=== PATIENT | female | born 1945 | race Caucasian/White ===

== ENCOUNTER 2020-04-11 07:29 | Outpatient (REF) | payer MEDICARE, SELFPAY ==
--- NOTE | 2020-04-11 07:35 | MM_ITS ---
EXAMINATION: MM SCREENING DIGITAL BREAST TOMOSYNTHESIS, BILATERAL CLINICAL INFORMATION: Screening. Asymptomatic. The lifetime risk of breast cancer based on the Tyrer-Cuzick Model is under 2%. COMPARISON: Mammography: 04/04/2019, 02/19/2018, 12/30/2016 TECHNIQUE: Digital breast tomosynthesis is performed in both the craniocaudal and mediolateral oblique views along with computer-aided detection (CAD). Synthesized 2D images are generated from the tomosynthesis. Additional exaggerated left CC view is provided. FINDINGS: The breasts are heterogeneously dense, which may obscure small masses (ACR BI-RADS breast composition Category c). There is no significant mass or architectural abnormality. Parenchymal pattern is similar to prior studies. No developing density. There are bilateral vascular and some round and coarse calcifications. Ductal secretory calcifications again noted anterior 12:00 right breast. No significant changes from prior exams. MM/MM tomosynthesis screening BI IMPRESSION: No significant changes from prior studies. ASSESSMENT: BI-RADS 2: Benign RECOMMENDATION: Routine annual mammography screening. This patient's information was entered into a reminder system with a target due date for their next mammogram.
== END 2020-04-11 07:30 | disposition home or self-care (01) ==
LOC: HO.MAMMO 07:29
PROVIDERS: PCP Internal Medicine; Visit Provider Internal Medicine
DX: Z12.31 Encounter for screening mammogram for malignant neoplasm of breast (principal)
CPT/HCPCS: 77063; 77067

== ENCOUNTER 2020-05-23 09:00 | Outpatient (REF) | payer MEDICARE, SELFPAY ==
[2020-05-23 09:55] LABS: MANUAL DIFF FLAG NO
[2020-05-23 10:10] LABS: Basophils Percent Auto 0.6 % (0-2); Eosinophils Percent Auto 1.2 % (0-4); Glucose Urine UA NEG (NEG); Hematocrit 39.9 % (37-47); Hemoglobin 12.6 g/dl (12.0-16.0); Imm Gran Abs Auto 0.02 X10*3/uL (0.00-0.03); Imm Gran Pct Auto 0.6 % (0.0-0.4); Leukocyte Esterase Urine NEG (NEG); Lymphocytes Absolute Auto 1.4 X10*3/uL (1.2-4.9); Lymphocytes Percent Auto 43.2 % (20-40); Mean Corpuscular HGB Conc 31.6 g/dl (31.0-35.0); Mean Corpuscular Hemoglobin 28.8 pg (27.0-33.0); Mean Corpuscular Volume 91.1 fL (80-98); Mean Platelet Volume 10.8 fL (9.4-12.3); Monocytes Absolute Auto 0.3 X10*3/uL (0.1-1.2); Monocytes Percent Auto 9.7 % (2-11); Neutrophils Absolute Auto 1.5 X10*3/uL (2.0-8.3); Neutrophils Percent Auto 44.7 % (45-73); Nitrite Urine NEG (NEG); Platelet Count 190 X10*3/uL (160-400); Red Blood Count 4.38 X10*6/uL (4.20-5.50); Red Cell Distribution Width 12.5 % (11.0-16.0); Specific Gravity - Urine 1.025 (1.005-1.025); Urine Blood NEG (NEG); Urine Ketones NEG (NEG); Urine Protein NEG (NEG-TRACE); White Blood Count 3.3 X10*3/uL (4.8-10.8)
[2020-05-23 10:13] LABS: Appearance Urine CLEAR; Color Urine YELLOW
[2020-05-23 10:23] LABS: Alanine Aminotransferase 13 U/L (0-31); Albumin Level 3.4 g/dL (3.5-5.0); Alkaline Phosphatase 82 U/L (39-117); Anion Gap 11 (12-20); Aspartate Amino Transferase 17 U/L (5-31); Bilirubin Total 0.4 mg/dL (0.0-1.0); Blood Urea Nitrogen 9 mg/dL (9-16); Carbon Dioxide 26 mmol/L (22-29); Chloride 109 mmol/L (96-108); Cholesterol 147 mg/dL; Estimated Glomerular Filt Rate > 60; Glucose Fasting 91 mg/dL (60-99); HDL Cholesterol 36 mg/dL; LDL Cholesterol Calculated 90 mg/dl; Sodium 142 mmol/L (135-145); Total Protein 6.7 g/dL (6.5-8.0); Triglycerides 107 mg/dL
[2020-05-23 10:42] LABS: Estimated Average Glucose 108 mg/dL; Hemoglobin A1c % 5.4 %
[2020-05-23 10:43] LABS: Vitamin D 25-OH Total 43.2 ng/mL (>30)
[2020-05-23 11:05] LABS: Mucus Urine TRACE /LPF; RBC Urine 0-2 /HPF (0); Squamous Epithelial Cell Urine 1+ /LPF
[2020-05-23 11:12] LABS: Folate 8.9 ng/mL (> or = 4.0); Vitamin B12 > 2000 pg/mL (200-900)
== END 2020-05-23 09:01 | disposition home or self-care (01) ==
LOC: HO.LAB 09:00
PROVIDERS: Visit Provider Internal Medicine
DX: E55.9 Vitamin D deficiency, unspecified (principal); R79.89 Other specified abnormal findings of blood chemistry; F03.90 Unspecified dementia, unspecified severity, without behavioral disturbance, psychotic disturbance, mood disturbance, and anxiety; E78.00 Pure hypercholesterolemia, unspecified
CPT/HCPCS: 36415; 80053; 80061; 81001; 82306; 82607; 82746; 83036; 85025

== ENCOUNTER 2021-01-18 10:23 | Outpatient (REF) | payer MEDICARE, OTHER, SELFPAY ==
[2021-01-18 11:13] LABS: MANUAL DIFF FLAG NO
[2021-01-18 11:32] LABS: Alanine Aminotransferase 11 U/L (0-31); Albumin Level 3.9 g/dL (3.5-5.0); Alkaline Phosphatase 84 U/L (39-117); Anion Gap 9 (12-20); Aspartate Amino Transferase 15 U/L (5-31); Bilirubin Total 0.5 mg/dL (0.0-1.0); Blood Urea Nitrogen 18 mg/dL (9-16); Calcium 9.3 mg/dL (8.4-10.2); Carbon Dioxide 30 mmol/L (22-29); Chloride 106 mmol/L (96-108); Cholesterol 171 mg/dL; Estimated Glomerular Filt Rate > 60; Glucose Fasting 97 mg/dL (60-99); HDL Cholesterol 59 mg/dL; LDL Cholesterol Calculated 99 mg/dl; Potassium 4.1 mmol/L (3.3-5.1); Sodium 141 mmol/L (135-145); Total Protein 7.5 g/dL (6.5-8.0); Triglycerides 68 mg/dL
[2021-01-18 11:39] LABS: Basophils Percent Auto 0.5 % (0-2); Eosinophils Percent Auto 0.4 % (0-4); Hematocrit 40.6 % (37-47); Hemoglobin 12.9 g/dl (12.0-16.0); Imm Gran Abs Auto 0.02 X10*3/uL (0.00-0.03); Imm Gran Pct Auto 0.4 % (0.0-0.4); Lymphocytes Absolute Auto 1.4 X10*3/uL (1.2-4.9); Lymphocytes Percent Auto 25.6 % (20-40); Mean Corpuscular HGB Conc 31.8 g/dl (31.0-35.0); Mean Corpuscular Hemoglobin 28.7 pg (27.0-33.0); Mean Corpuscular Volume 90.4 fL (80-98); Mean Platelet Volume 11.5 fL (9.4-12.3); Monocytes Absolute Auto 0.5 X10*3/uL (0.1-1.2); Monocytes Percent Auto 9.8 % (2-11); Neutrophils Absolute Auto 3.5 X10*3/uL (2.0-8.3); Neutrophils Percent Auto 63.3 % (45-73); Platelet Count 181 X10*3/uL (160-400); Red Blood Count 4.49 X10*6/uL (4.20-5.50); Red Cell Distribution Width 13.2 % (11.0-16.0); White Blood Count 5.5 X10*3/uL (4.8-10.8)
[2021-01-18 11:53] LABS: Estimated Average Glucose 103 mg/dL; Hemoglobin A1c % 5.2 %
[2021-01-18 11:54] LABS: TSH reflex Free T4 3.73 uIU/mL (0.32-4.0); Vitamin D 25-OH Total 36.3 ng/mL (>30)
[2021-01-18 12:05] LABS: Folate 9.9 ng/mL (> or = 4.0); Vitamin B12 1305 pg/mL (200-900)
[2021-01-18 13:38] LABS: Glucose Urine UA NEG (NEG); Leukocyte Esterase Urine NEG (NEG); Nitrite Urine NEG (NEG); Specific Gravity - Urine 1.025 (1.005-1.025); Urine Blood NEG (NEG); Urine Ketones NEG (NEG); Urine Protein NEG (NEG-TRACE)
[2021-01-18 13:43] LABS: Appearance Urine CLEAR; Color Urine YELLOW
== END 2021-01-18 10:24 | disposition home or self-care (01) ==
LOC: HO.LAB 10:23
PROVIDERS: PCP Internal Medicine; Visit Provider Internal Medicine
DX: I10 Essential (primary) hypertension (principal); K22.70 Barrett's esophagus without dysplasia; E78.00 Pure hypercholesterolemia, unspecified; R73.01 Impaired fasting glucose; F03.90 Unspecified dementia, unspecified severity, without behavioral disturbance, psychotic disturbance, mood disturbance, and anxiety; E66.3 Overweight; E55.9 Vitamin D deficiency, unspecified
CPT/HCPCS: 36415; 80053; 80061; 81003; 82306; 82607; 82746; 83036; 84443; 85025

== ENCOUNTER 2021-05-16 08:53 | Outpatient (REF) | payer MEDICARE, SELFPAY ==
[2021-05-16 09:10] LABS: MANUAL DIFF FLAG NO
[2021-05-16 09:18] LABS: Basophils Percent Auto 0.7 % (0-2); Eosinophils Percent Auto 0.2 % (0-4); Hematocrit 37.8 % (37.0-47.0); Hemoglobin 12.2 g/dl (12.0-16.0); Imm Gran Abs Auto 0.02 X10*3/uL (0.00-0.03); Imm Gran Pct Auto 0.3 % (0.0-0.4); Lymphocytes Absolute Auto 1.4 X10*3/uL (1.2-4.9); Lymphocytes Percent Auto 23.5 % (20-40); Mean Corpuscular HGB Conc 32.3 g/dl (31.0-35.0); Mean Corpuscular Hemoglobin 29.8 pg (27.0-33.0); Mean Corpuscular Volume 92.2 fL (80.0-98.0); Monocytes Absolute Auto 0.6 X10*3/uL (0.1-1.2); Monocytes Percent Auto 9.4 % (2-11); Neutrophils Absolute Auto 4.1 x10*3/uL (2.0-8.3); Neutrophils Percent Auto 65.9 % (45-73); Platelet Count 169 X10*3/uL (160-400); Red Cell Distribution Width 12.7 % (11.0-16.0); White Blood Count 6.1 X10*3/uL (4.8-10.8)
[2021-05-16 09:28] LABS: Estimated Average Glucose 103 mg/dL; Hemoglobin A1c % 5.2 %
[2021-05-16 10:22] LABS: Alanine Aminotransferase 9 U/L (0-31); Albumin Level 3.8 g/dL (3.5-5.0); Alkaline Phosphatase 87 U/L (39-117); Anion Gap 9 (12-20); Aspartate Amino Transferase 14 U/L (5-31); Bilirubin Total 0.3 mg/dL (0.0-1.0); Blood Urea Nitrogen 15 mg/dL (9-16); Calcium 8.7 mg/dL (8.4-10.2); Carbon Dioxide 28 mmol/L (22-29); Chloride 108 mmol/L (96-108); Cholesterol 162 mg/dL; Estimated Glomerular Filt Rate > 60; Glucose Fasting 104 mg/dL (60-99); HDL Cholesterol 51 mg/dL; LDL Cholesterol Calculated 92 mg/dl; Potassium 4.2 mmol/L (3.3-5.1); Sodium 141 mmol/L (135-145); Triglycerides 96 mg/dL
[2021-05-16 10:23] LABS: Appearance Urine CLEAR; Color Urine YELLOW; Glucose Urine UA NEG (NEG); Leukocyte Esterase Urine NEG (NEG); Nitrite Urine NEG (NEG); Specific Gravity - Urine 1.025 (1.005-1.025); Urine Blood NEG (NEG); Urine Ketones NEG (NEG); Urine Protein NEG (NEG-TRACE)
[2021-05-16 10:30] LABS: TSH reflex Free T4 5.12 uIU/mL (0.32-4.0); Vitamin D 25-OH Total 32.8 ng/mL (>30)
[2021-05-16 11:03] LABS: Free T4 (Free Thyroxine) 0.98 ng/dL (0.71-1.85)
== END 2021-05-16 08:54 | disposition home or self-care (01) ==
LOC: HO.LAB 08:53
PROVIDERS: Visit Provider Internal Medicine
DX: E55.9 Vitamin D deficiency, unspecified (principal); I10 Essential (primary) hypertension; E78.00 Pure hypercholesterolemia, unspecified; R73.01 Impaired fasting glucose
CPT/HCPCS: 36415; 80053; 80061; 81003; 82306; 83036; 84439; 84443; 85025

== ENCOUNTER 2021-09-17 10:15 | Outpatient (REF) | payer MEDICARE, SELFPAY ==
[2021-09-17 10:57] LABS: MANUAL DIFF FLAG NO
[2021-09-17 11:53] LABS: Basophils Percent Auto 0.7 % (0-2); Hematocrit 41.1 % (37.0-47.0); Hemoglobin 13.2 g/dl (12.0-16.0); Imm Gran Abs Auto 0.01 X10*3/uL (0.00-0.03); Imm Gran Pct Auto 0.2 % (0.0-0.4); Lymphocytes Absolute Auto 1.6 X10*3/uL (1.2-4.9); Lymphocytes Percent Auto 35.4 % (20-40); Mean Corpuscular HGB Conc 32.1 g/dl (31.0-35.0); Mean Corpuscular Hemoglobin 29.3 pg (27.0-33.0); Mean Corpuscular Volume 91.1 fL (80.0-98.0); Mean Platelet Volume 11.3 fL (9.4-12.3); Monocytes Absolute Auto 0.5 X10*3/uL (0.1-1.2); Monocytes Percent Auto 10.8 % (2-11); Neutrophils Absolute Auto 2.4 x10*3/uL (2.0-8.3); Neutrophils Percent Auto 52.9 % (45-73); Platelet Count 164 X10*3/uL (160-400); Red Blood Count 4.51 X10*6/uL (4.20-5.50); White Blood Count 4.4 X10*3/uL (4.8-10.8)
[2021-09-17 12:12] LABS: Appearance Urine CLEAR; Color Urine YELLOW; Glucose Urine UA NEG (NEG); Leukocyte Esterase Urine NEG (NEG); Nitrite Urine NEG (NEG); Specific Gravity - Urine 1.015 (1.005-1.025); Urine Blood NEG (NEG); Urine Ketones NEG (NEG); Urine Protein NEG (NEG-TRACE)
[2021-09-17 12:32] LABS: Free T4 (Free Thyroxine) 0.94 ng/dL (0.71-1.85); Thyroid Stimulating Hormone 3.55 uIU/mL (0.32-4.0); Vitamin D 25-OH Total 38.3 ng/mL (>30)
[2021-09-17 12:37] LABS: Alanine Aminotransferase 7 U/L (0-31); Albumin Level 3.8 g/dL (3.5-5.0); Alkaline Phosphatase 74 U/L (39-117); Anion Gap 13 (12-20); Aspartate Amino Transferase 12 U/L (5-31); Bilirubin Total 0.5 mg/dL (0.0-1.0); Blood Urea Nitrogen 14 mg/dL (9-16); Carbon Dioxide 24 mmol/L (22-29); Chloride 105 mmol/L (96-108); Cholesterol 163 mg/dL; Estimated Glomerular Filt Rate > 60; Glucose Fasting 92 mg/dL (60-99); HDL Cholesterol 49 mg/dL; LDL Cholesterol Calculated 95 mg/dl; Potassium 4.3 mmol/L (3.3-5.1); Sodium 138 mmol/L (135-145); Total Protein 7.2 g/dL (6.5-8.0); Triglycerides 98 mg/dL
== END 2021-09-17 10:16 | disposition home or self-care (01) ==
LOC: HO.LAB 10:15
PROVIDERS: PCP Internal Medicine; Visit Provider Internal Medicine
DX: E78.00 Pure hypercholesterolemia, unspecified (principal); I10 Essential (primary) hypertension; K22.70 Barrett's esophagus without dysplasia; E55.9 Vitamin D deficiency, unspecified; E03.9 Hypothyroidism, unspecified
CPT/HCPCS: 36415; 80053; 80061; 81003; 82306; 84439; 84443; 85025

== ENCOUNTER 2022-06-16 09:43 | Outpatient (REF) | payer MEDICARE, MEDICAID, SELFPAY ==
[2022-06-16 10:00] LABS: MANUAL DIFF FLAG NO
[2022-06-16 10:41] LABS: Basophils Percent Auto 0.7 % (0-2); Eosinophils Percent Auto 0.2 % (0-4); Hematocrit 40.6 % (37.0-47.0); Hemoglobin 13.3 g/dl (12.0-16.0); Imm Gran Abs Auto 0.01 X10*3/uL (0.00-0.03); Imm Gran Pct Auto 0.2 % (0.0-0.4); Lymphocytes Absolute Auto 1.5 X10*3/uL (1.2-4.9); Lymphocytes Percent Auto 33.7 % (20-40); Mean Corpuscular HGB Conc 32.8 g/dl (31.0-35.0); Mean Corpuscular Hemoglobin 29.8 pg (27.0-33.0); Mean Platelet Volume 11.3 fL (9.4-12.3); Monocytes Absolute Auto 0.4 X10*3/uL (0.1-1.2); Neutrophils Absolute Auto 2.6 x10*3/uL (2.0-8.3); Neutrophils Percent Auto 56.2 % (45-73); Platelet Count 166 X10*3/uL (160-400); Red Blood Count 4.46 X10*6/uL (4.20-5.50); Red Cell Distribution Width 12.5 % (11.0-16.0); White Blood Count 4.6 X10*3/uL (4.8-10.8)
[2022-06-16 10:42] LABS: Appearance Urine Clear; Color Urine Yellow; Glucose Urine UA Negative (Negative); Leukocyte Esterase Urine Small (1+) (Negative); Nitrite Urine Negative (Negative); Specific Gravity - Urine 1.015 (1.005-1.025); UMIC TRIGGER UACC YES; Urine Blood Negative (Negative); Urine Ketones Negative (Negative); Urine Protein Negative (Neg-Trace)
[2022-06-16 10:47] LABS: Bacteria Urine None Seen (None Seen); Hyaline Casts Urine 0-2 /LPF (0-2); RBC Urine 0-2 /HPF (0-2); Squamous Epithelial Cell Urine 0-2 /HPF (0-2); UACC Culture Trigger YES
[2022-06-16 11:14] LABS: Alanine Aminotransferase 7 U/L (0-31); Albumin Level 3.6 g/dL (3.5-5.0); Alkaline Phosphatase 74 U/L (39-117); Anion Gap 11 (12-20); Aspartate Amino Transferase 14 U/L (5-31); Bilirubin Total 0.5 mg/dL (0.0-1.0); Blood Urea Nitrogen 10 mg/dL (9-16); Calcium 8.7 mg/dL (8.4-10.2); Carbon Dioxide 27 mmol/L (22-29); Chloride 106 mmol/L (96-108); Cholesterol 161 mg/dL; Estimated Glomerular Filt Rate > 60; Glucose Fasting 91 mg/dL (60-99); HDL Cholesterol 40 mg/dL; LDL Cholesterol Calculated 87 mg/dl; Potassium 4.2 mmol/L (3.3-5.1); Sodium 140 mmol/L (135-145); Total Protein 6.8 g/dL (6.5-8.0); Triglycerides 172 mg/dL
[2022-06-16 11:32] LABS: TSH reflex Free T4 5.94 uIU/mL (0.32-4.0); Vitamin D 25-OH Total 46.1 ng/mL (>30)
[2022-06-16 12:33] LABS: Free T4 (Free Thyroxine) 0.86 ng/dL (0.71-1.85)
== END 2022-06-16 09:44 | disposition home or self-care (01) ==
LOC: HO.LAB 09:43
PROVIDERS: PCP Internal Medicine; Visit Provider Internal Medicine
DX: I10 Essential (primary) hypertension (principal); E78.00 Pure hypercholesterolemia, unspecified; E55.9 Vitamin D deficiency, unspecified
CPT/HCPCS: 36415; 80053; 80061; 81001; 82306; 84439; 84443; 85025; 87086

== ENCOUNTER 2022-07-21 16:27 | Outpatient (REF) | payer MEDICARE, MEDICAID, SELFPAY ==
[2022-07-21 16:41] LABS: MANUAL DIFF FLAG NO
[2022-07-21 16:51] LABS: Appearance Urine Hazy; Color Urine Yellow; Glucose Urine UA Negative (Negative); Leukocyte Esterase Urine Small (1+) (Negative); Nitrite Urine Negative (Negative); Specific Gravity - Urine >= 1.030 (1.005-1.025); UMIC TRIGGER UACC YES; Urine Blood Negative (Negative); Urine Ketones Negative (Negative); Urine Protein Trace mg/dL (Neg-Trace)
[2022-07-21 17:01] LABS: Bacteria Urine Trace (None Seen); Squamous Epithelial Cell Urine 0-2 /HPF (0-2); UACC Culture Trigger YES; WBC Urine 0-5 /HPF (0-5)
[2022-07-21 17:15] LABS: Basophils Absolute Auto 0.1 X10*3/uL (0.0-0.2); Basophils Percent Auto 0.8 % (0-2); Eosinophils Percent Auto 0.2 % (0-4); Hematocrit 40.5 % (37.0-47.0); Hemoglobin 13.2 g/dl (12.0-16.0); Imm Gran Abs Auto 0.02 X10*3/uL (0.00-0.03); Imm Gran Pct Auto 0.3 % (0.0-0.4); Lymphocytes Absolute Auto 2.2 X10*3/uL (1.2-4.9); Lymphocytes Percent Auto 36.1 % (20-40); Mean Corpuscular HGB Conc 32.6 g/dl (31.0-35.0); Mean Corpuscular Hemoglobin 29.6 pg (27.0-33.0); Mean Corpuscular Volume 90.8 fL (80.0-98.0); Mean Platelet Volume 11.2 fL (9.4-12.3); Monocytes Absolute Auto 0.8 X10*3/uL (0.1-1.2); Monocytes Percent Auto 12.6 % (2-11); Platelet Count 170 X10*3/uL (160-400); Red Blood Count 4.46 X10*6/uL (4.20-5.50); Red Cell Distribution Width 12.5 % (11.0-16.0)
[2022-07-21 17:39] LABS: Hyaline Casts Urine 0-2 /LPF (0-2)
== END 2022-07-21 16:28 | disposition home or self-care (01) ==
LOC: HO.LAB 16:27
PROVIDERS: PCP Internal Medicine; Visit Provider Internal Medicine
DX: R19.7 Diarrhea, unspecified (principal); I10 Essential (primary) hypertension; R82.90 Unspecified abnormal findings in urine
CPT/HCPCS: 36415; 81001; 85025; 87086

== ENCOUNTER 2023-03-23 15:47 | Outpatient (AMB) | payer MEDICARE, MEDICAID, SELFPAY ==
--- NOTE | 2023-03-23 15:47 | MHC.PC.OV ---
Intake Visit Reasons: dementia [employer] Required: No Accompanied by: Daughter Allergies hydromorphone [From DILAUDID] Allergy (Severe, Verified 03/23/23 16:52) VOMITING hydroxychloroquine [From PLAQUENIL] Allergy (Severe, Verified 03/23/23 16:52) RASH aspirin Allergy (Unknown, Verified 03/23/23 16:52) ? simvastatin [SIMVASTATIN] Allergy (Unknown, Verified 03/23/23 16:52) UNKNOWN Medication List - Last Reconciled 03/23/23 by Andre Fish MD [ADULT SIZED DISPOSABLE INCONTINENCE PRODUCT, PROTECTIVE UNDERWEAR/ PULL ON (large) As directed] [BLADDER PADS (LARGE) As directed] cholecalciferol (vitamin D3) 50 mcg PO DAILY 90 days [CHUX UNDERPADS As directed] cyanocobalamin (vitamin B-12) 1,000 mcg PO DAILY 90 days [DEPENDS ADULT PULL UPS (LARGE) As directed Ht = 5'1 ; Wt = 164 lbs] [DISPOSABLE LINER/SHIELD/GUARD/PAD/UNDERGARMENT for incontinence As directed] docusate sodium (Colace) 100 mg PO DAILY PRN 90 days donepezil 10 mg PO DAILY 90 days [INCONTINENCE PRODUCT, DISPOSABLE UNDERPAD (large) As directed] [LINERS (large) As directed] losartan 25 mg PO DAILY 90 days lovastatin 20 mg PO DAILY 90 days mecobalamin (vitamin B12) 1,000 mcg PO DAILY 90 days memantine 5 mg PO DAILY 90 days olanzapine 5 mg PO BEDTIME 90 days omeprazole 40 mg PO QAM trazodone 25 mg PO BEDTIME PRN Tobacco use date assessed: 03/23/23 Fall risk assessment: No Falls in past year Last assessed Fall Risk: 03/23/23 Dental Screening Dental Screen Date: 03/23/23 Did you have a dental visit in the last 12 months?: No Did you have a dental problem in the last 6 months where you did not have access to dental care?: No Was dental information given to patient?: No HPI dementia HPI Details Patient's follow up visit / consultation today is done over video conference (iPhone/iPad/Google Meets/Doximity) - this is a TELEHEALTH visit Patient's current medications have been reviewed and verified with patient and/or caregiver/proxy and have been updated accordingly in the medication list Her visit today is done through her daughter, Evonne, as patient is not able to participate in today's telehealth visit due to her dementia Her daughter states that about 2 Thudays ago (03/13/2023), patient suddenly became completely unresponsive and would not move and she stayed like this for the next couple of days States that while she was unresponsive, they could not get her to eat or drink anything although they were able to get a small amount of water into her mouth a little at a time She was not able to take any of her medications at all while she was unresponsive When she came through a couple of days later, she was noted to be alert and responsive for a while - more than she had been at any time over the past couple of years Her daughter states that since then, they have just started her back on a few of her medications, including her losartan, olanzapine and donepezil Her memantine, trazodone, omeprazole, lovastatin and even her vitamin D and B12 were stopped They are questioning if she even needs to be taking her donepezil at this time as her memory is not expected to improve and with what happened to her recently, they would like to have her be on as little medicine as possible, as they also think that not taking any medications for a couple of days when she was unresponsive may have helped with her overall alertness Patient is noted at this time to be smiling at the camera when greeted so she is responding a bit more than she usually does Her daughter states that she is currently eating okay and seems to be back to her baseline They are also requesting for a referral to hospice for evaluation into the program so patient can get as much help as she can No other acute complaints or symptoms are noted [facility] Medical History Overweight (BMI 25.0-29.9) Paranoia Anxiety Insomnia Dementia Vitamin D deficiency Irritable bowel syndrome Impaired fasting glucose Torres's esophagus Pure hypercholesterolemia Benign essential hypertension Surgical History History of eye surgery History of thyroidectomy, subtotal S/P breast lumpectomy History of tonsillectomy History of total abdominal hysterectomy and bilateral salpingo-oophorectomy History of colonoscopy Family History Father Medical history unknown Mother Medical history unknown Son No problems noted. Daughter No problems noted. Social History Housing: Apartment Alcohol intake: former Patient Tobacco Use Status: Former Tobacco user e-Cigarette/Vaping Use: Never Used Second Hand Smoke Exposure: Yes service: No Current occupational status: retired Cognitive needs: Yes (dementia) Hearing needs: No Vision needs: Yes Questionnaire PHQ-9 Over the last 2 weeks, how often have you been bothered by any of the following problems? 1. Little interest or pleasure in doing things: not at all 2. Feeling down, depressed, or hopeless: not at all 3. Trouble falling or staying asleep, or sleeping too much: nearly every day 4. Feeling tired or having little energy: not at all 5. Poor appetite or overeating: not at all 6. Feeling bad about yourself - or that you are a failure or have let yourself or your family down: not at all 7. Trouble concentrating on things, such as reading the newspaper or watching television: not at all 8. Moving or speaking so slowly that other people could have noticed. Or the opposite - being so fidgety or restless that you have been moving around a lot more than usual: not at all 9. Thoughts that you would be better off or of hurting yourself in some way: not at all Total score: 3 Depression Screening Interpretation: Negative (information is not accurate as patient is non-verbalizing due to her dementia - daughter provides all information) Depression Screening Done: Yes 52759 - PHQ-9 Billing: Yes Source: Developed by Drs. Jacob Parmar, Nicolette Rivera, Jorge Layton and colleagues, with an educational imtiaz from [employer]. Thrive Questionnaire Date Thrive assessed: 03/23/23 I am a: Patient What is your living situation today?: I have a steady place to live Within the past 12 months, did the food you bought not last and you didn't have the money to get more?: Never true Within the past 12 months, did you worry whether your food would run out before you got money to buy more?: Never true Do you have trouble paying for medicines?: No Do you have trouble getting transportation to medical appointments?: No Do you have trouble paying your heating and electricity bill?: No Do you have trouble taking care of your child, family member or friend?: No Do you have trouble with day-to-day activities such as bathing, preparing meals, shopping, managing finances, etc.?: No Are you currently unemployed and looking for a job?: No Are you interested in more education?: No Please select the resources that you would like help with: None Currently or been in a relationship where the following occur: no concerns reported AUDIT C Alcohol Use Questionnaire (AUDIT-C) 1. How often do you have a drink containing alcohol?: Never 2. How many drinks containing alcohol do you have on a typical day when you are drinking?: 1 or 2 (0) 3. How often do you have six or more drinks on one occasion?: Never Total Score: 0 Score Reviewed/Action Taken: Yes ABNER-7 AMB Questionnaire ABNER-7 Date ABNER - 7 assessed: 03/23/23 Feeling nervous, anxious, or on edge: 0 = Not at all Not being able to stop or control worryin = Not at all Worrying too much about different things: 0 = Not at all Trouble relaxin = Not at all Being so restless that it is hard to sit still: 0 = Not at all Becoming easily annoyed or irritable: 0 = Not at all Feeling afraid as if something awful might happen: 0 = Not at all Total ABNER-7 score (0-4 normal; 5-9 mild; 10-14 moderate; 15-21 severe): 0 Source: Developed by Drs. Jacob Parmar, Nicolette Rivera, Jorge Layton and colleagues, with an educational imtiaz from [employer]. ABNER-7 Assessment Billing ABNER-7 Assessment Tool: ABNER-7 Assessment 92110 Review of Systems Const Other (ROS obtained from patient's daughter, as patient has dementia & doesnt talk) Denies chills, Denies difficulty sleeping (sleeping better with Rx), Denies fever(s) and Denies headache(s) ENT Denies dysphagia, Denies ear discharge, Denies headache(s), Denies nasal discharge and Denies odynophagia Card Denies chest pain, Denies palpitations and Denies dyspnea Resp Denies cough and Denies dyspnea GI Denies abdominal pain, Denies constipation, Denies dysphagia, Reports fecal incontinence, Denies diarrhea, Denies nausea, Denies odynophagia and Denies vomiting Denies hematuria, Denies difficulty voiding and Reports urinary incontinence Neuro Reports confusion, Denies headache(s) and Reports memory loss Psych Reports anxiety (at times), Reports confusion and Reports memory loss Endo Denies palpitations Physical exam (Primary Care) Vital Signs: Physical examination is not performed as visit / consultation today is done over videoconference - Telehealth visit All physical findings indicated here, if present, are as per patient's and / or caregivers / proxy's report and visual inspection over videoconference, if appropriate or applicable Tobacco/Smoking Status: Tobacco use Status Tobacco use date assessed 03/23/23 03/23/23 15:49 Patient Tobacco Use Status Former Tobacco user 03/23/23 15:49 e-Cigarette/Vaping Use Never Used 03/23/23 15:49 PHQ-9: PHQ-9 Score PHQ-9: Total score 3 03/23/23 16:50 Depression Screening Interpretation: Negative (information is not accurate as patient is non-verbalizing due to her dementia - daughter provides all information) Thrive Assessment: Date of Thrive Assessment Date Thrive assessed 03/23/23 03/23/23 15:49 Currently or been in a relationship where the following occur: no concerns reported Const General: confusion Orientation/consciousness: confusion Neuro General: confusion Telehealth Telehealth Location of provider rendering services: practice address Location of patient: address on file Patient Identification confirmed using: Name, : Yes Telehealth method: video (Iphone/[employer] Patient verbally consented to treatment: Yes Patient verbally consented to billing insurance company: Yes Patient informed of any privacy concerns related to visit: Yes Minutes spent on Phone/Video with Pt.: 23 Assessment and Plan Assessment & Plan (1) Dementia: Code(s): F03.90 - Unspecified dementia, unspecified severity, without behavioral disturbance, psychotic disturbance, mood disturbance, and anxiety Qualifiers: Dementia behavioral disturbance: without behavioral disturbance Dementia type: unspecified type Qualified Code(s): F03.90 - Unspecified dementia without behavioral disturbance Plan: Patient has / care at home, per her daughter She used to be on Memantine 5 mg BID and Donepezil 10 mg QD but Memantine was stopped after her bout of unresponsiveness a couple of weekends ago Patient has been started back on Donepezil and her daughter would like to see if they can discontinue this as she does not think that the medication is going to make any difference for patient at this point and would like to minimize her meds as much as possible Will have them lower her Donepezil to 5 mg QD x 2 weeks, then to discontinue the medication completely after 2 weeks Per request, will also refer patient for hospice evaluation (2) Benign essential hypertension: Code(s): I10 - Essential (primary) hypertension Plan: Reinforced low-sodium diet -? goal is systolic BP of at least 140 mm or less Continue Losartan 25 mg QD Metoprolol ER 25 mg was discontinued a couple of years ago due to low blood pressure and heart rate - she has been doing well since Rx was stopped (3) Pure hypercholesterolemia: Code(s): E78.00 - Pure hypercholesterolemia, unspecified Plan: Reinforced low cholesterol diet She was on Lovastatin 20 mg QD but this was also stopped and never resumed when she had her recent bout of unresponsiveness Will continue to hold off on starting her back on Lovastatin at this time (4) Impaired fasting glucose: Code(s): R73.01 - Impaired fasting glucose Plan: HgbA1c was normal at 5.2% on her labs done previously; FBS was normal at 91 mg/dl on her previous labs Reinforced low calorie diet (5) Torres's esophagus: Code(s): K22.70 - Torres's esophagus without dysplasia Qualifiers: Torres's esophagus type: without dysplasia Qualified Code(s): K22.70 - Torres's esophagus without dysplasia Plan: Has been on Omeprazole 20 mg QD for years for her Torres's esophagus but Rx has been held for the past couple of weeks following her recent bout of unresponsiveness - advised to continue holding off on this for now Patient also used to follow-up with GI for continuing surveillance of her Torres's esophagus but given her current condition, continuing surveillance is no longer practical (6) Irritable bowel syndrome: Code(s): K58.9 - Irritable bowel syndrome without diarrhea Qualifiers: Irritable bowel syndrome type: unspecified Qualified Code(s): K58.9 - Irritable bowel syndrome without diarrhea Plan: Stable with no acute flare ups recently Reinforced dietary restrictions (7) Vitamin D deficiency: Code(s): E55.9 - Vitamin D deficiency, unspecified Plan: Per request, will hold off on starting her back on Vitamin D3 1000 units QD as well at this time Will recheck her level sometime next year when she gets her follow up labs done (8) Insomnia: Code(s): G47.00 - Insomnia, unspecified Qualifiers: Insomnia type: unspecified Qualified Code(s): G47.00 - Insomnia, unspecified Plan: Sleep hygiene reinforced Olanzapine is reportedly helping with her sleep at night somewhat Was also on Trazodone 25 mg Q HS previously (per psychiatry) but this has been held for the past couple of weeks and her daughter prefers not to start patient back IF her Olanzapine is helping with her agitation and sleep (9) Anxiety: Code(s): F41.9 - Anxiety disorder, unspecified Plan: Doing well lately Patient previously developed symptoms of tardive dyskinesia and word aphasia on Lorazepam but these have improved since the Rx was discontinued (10) Paranoia: Code(s): F22 - Delusional disorders Plan: Continue Olanzapine 5 mg Q HS Follow-up with Psychiatry as scheduled Plan Follow up in 4 months - OK for telehealth given patient's dementia Orders: [facility]errals [facility] Referral F03.90 - Unspecified dementia, unspecified severity, without behavioral disturbance, psychotic disturbance, mood disturbance, and anxiety Medications: Changed From donepezil 10 mg PO DAILY 90 days 90 tabs 1RF F03.90 - Unspecified dementia, unspecified severity, without behavioral disturbance, psychotic disturbance, mood disturbance, and anxiety To donepezil 5 mg PO DAILY 14 days 14 tabs 0RF F03.90 - Unspecified dementia, unspecified severity, without behavioral disturbance, psychotic disturbance, mood disturbance, and anxiety Coding Level of Care Code Tele Est Pt Level 4 (71234) Diagnoses Dementia without behavioral disturbance, unspecified dementia type F03.90 Dementia behavioral disturbance: without behavioral disturbance Dementia type: unspecified type Benign essential hypertension I10 Pure hypercholesterolemia E78.00 Impaired fasting glucose R73.01 Torres's esophagus without dysplasia K22.70 Torres's esophagus type: without dysplasia Irritable bowel syndrome, unspecified type K58.9 Irritable bowel syndrome type: unspecified Vitamin D deficiency E55.9 Insomnia, unspecified type G47.00 Insomnia type: unspecified Anxiety F41.9 Paranoia F22 Additional Codes ABNER-7 Assessment Billing - ABNER-7 Assessment Tool: ABNER-7 Assessment 22217 ([id number])
== END 2023-03-23 17:09 | disposition home or self-care (01) ==
LOC: HO.HMGH 15:47
PROVIDERS: PCP Internal Medicine; Visit Provider Internal Medicine
DX: I10 Essential (primary) hypertension (principal); E78.00 Pure hypercholesterolemia, unspecified; R73.01 Impaired fasting glucose; F03.90 Unspecified dementia, unspecified severity, without behavioral disturbance, psychotic disturbance, mood disturbance, and anxiety; K22.70 Barrett's esophagus without dysplasia; K58.9 Irritable bowel syndrome, unspecified; E55.9 Vitamin D deficiency, unspecified; G47.00 Insomnia, unspecified; F41.9 Anxiety disorder, unspecified
CPT/HCPCS: 99213